=== PATIENT | male | born 1965 | race Caucasian/White ===

== ENCOUNTER 2018-02-08 16:25 | Emergency (ER) | payer BC ==
[~2018-02-08] VITALS: Ht 175.3 cm; Wt 83.0 kg
[2018-02-08 16:52] VITALS: BP 144/81
[2018-02-08] MEDS ORDERED: Morphine Sulfate 4mg/ml Inj (IV USE ONLY) IVP ONE (17:00)
[2018-02-08] MEDS ORDERED: Ketorolac 30mg Inj IV ONE (17:00)
[2018-02-08 17:22] LABS: BASOPHILS % (AUTO) 0.3 % (0.0-2.0); HEMATOCRIT 50.6 % (42.0-52.0); HEMOGLOBIN 17.9 G/DL (14.2-18.0); LYMPHOCYTES % (AUTO) 9.3 % (20.0-45.0); MEAN CORPUSCULAR VOLUME 92 FL (80-99); MONOCYTES % (AUTO) 9.2 % (1.0-10.0); NEUTROPHILS % (AUTO) 81.2 % (45.0-75.0); PLATELET COUNT 317 K/UL (150-450); RED BLOOD COUNT 5.51 M/UL (4.70-6.10); RED CELL DISTRIBUTION WIDTH 11.9 % (11.6-14.8); WHITE BLOOD COUNT 9.8 K/UL (4.8-10.8)
[2018-02-08 17:24] LABS: APPEARANCE,URINE CLEAR; BILIRUBIN, URINE NEGATIVE (NEGATIVE); GLUCOSE, URINE (UA) NEGATIVE (NEGATIVE); KETONES,URINE 2+ (NEGATIVE); LEUKOCYTE ESTERASE ,URINE 1+ (NEGATIVE); NITRITE,URINE NEGATIVE (NEGATIVE); PH,URINE 6.5 (4.5-8.0); PROTEIN,URINE 2+ (NEGATIVE); UROBILINOGEN,URINE NORMAL MG/DL (0.0-1.0)
[2018-02-08 17:25] LABS: COLOR,URINE YELLOW
[2018-02-08 17:33] LABS: INR 1.1 (0.9-1.1)
[2018-02-08 17:34] LABS: ANION GAP 7 mmol/L (5-15); BLOOD UREA NITROGEN 22 mg/dL (7-18); CALCIUM 9.4 MG/DL (8.5-10.1); CARBON DIOXIDE 30 MMOL/L (21-32); CHLORIDE 101 MMOL/L (98-107); CREATININE 1.1 MG/DL (0.55-1.30); POTASSIUM 5.1 MMOL/L (3.5-5.1); SODIUM 138 MMOL/L (136-145)
[2018-02-08 17:38] LABS: ALANINE AMINOTRANSFERASE 45 U/L (12-78); ALBUMIN 4.5 G/DL (3.4-5.0); ALBUMIN/GLOBULIN RATIO 1.2 (1.0-2.7); ALKALINE PHOSPHATASE 50 U/L (46-116); ASPARTATE AMINO TRANSFERASE 22 U/L (15-37); BILIRUBIN,TOTAL 0.7 MG/DL (0.2-1.0)
--- NOTE | 2018-02-08 19:09 | Emergency Room Report ---
History of Present Illness General Chief Complaint: Pain Source: Patient Present Illness HPI Patient presents with lower abd pain. Started this afternoon. Intermittent. When he has it, it is severe. He thinks he might have pulled a muscle while working out. When he has the pain it is 10/10, at rest - minimal. Somewhat worse with movement, but starts spontaneously. Never has had before. No medicines taken. 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 Recent URI with treatment with steroids and antibiotic injection. On taper for 3 days. URI symptoms = sore throat improved. Mom in car states he almost passed out due to pain while he was driving and had to extractor puller. He was pale at that time. No NVD, dysuria, joint pain, chest pain, dyspnea, rashes. No prior h/o renal stones. Uncle with h/o renal stones. Admission here 10 years ago for facial cellulitis. 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 Reviewed Nursing Documentation: PMH: Agreed; PSxH: Agreed Nursing Documentation-PMH Past Medical History: No Stated History Review of Systems All Other Systems: negative except mentioned in HPI Physical Exam Vital Signs Date Time Temp Pulse Resp B/P (MAP) Pulse Ox O2 Delivery O2 Flow Rate FiO2 02/08/18 16:32 97.9 85 20 144/81 98 97.9 Sp02 EP Interpretation: reviewed, normal General Appearance: alert, GCS 15, other - episodes of severe pain with grimmacing Head: normocephalic, atraumatic Eyes: bilateral eye normal inspection, bilateral eye PERRL ENT: normal pharynx, no angioedema, normal voice Neck: full range of motion, supple Respiratory: chest non-tender, lungs clear, normal breath sounds Cardiovascular #1: regular rate, rhythm Cardiovascular #2: 2+ radial (R) Gastrointestinal: soft, no mass, no guarding, no rebound, tenderness - RLQ, other - some abdominal wall pain Genitourinary: no CVA tenderness Musculoskeletal: back normal, gait/station normal, normal range of motion Neurologic: alert, oriented x3, grossly normal Psychiatric: mood/affect normal Skin: normal inspection, warm/dry Medical Decision Making Diagnostic Impression: Primary Impression: Right flank pain Additional Impressions: Muscle spasm Dehydration Recent URI ER Course Patient presents with R flank/R LQ intermittent severe pain. DDx: renal stone, UTI, muscle strain/spasm, diverticulitis. Exam and history against appendicitis. Evaluation wit labs and ultrasound. Treatment with IV hydration and analgesia. Repeat evaluations. Due to severity of pain, consideration of renal stone. Labs with normal WBC, CMP except for elevated BUN and min elevated glucose. UA with ketones. US with gall bladder sludge. No hydro or stones identified. During U/S, he states he had xyphoid pain but not RUQ pain. Repeat exam, min tend RLQ - more abdominal wall and worsened with movement. Discussed outpatient observation with patient and family. Patient stable for outpatient observation and treatment. Laboratory Tests Test 02/08/18 16:35 02/08/18 17:15 Urine Color Yellow Urine Appearance Clear Urine pH 6.5 (4.5-8.0) Urine Specific [place] 1.015 (1.005-1.035) Urine Protein 2+ (NEGATIVE) H Urine Glucose (UA) Negative (NEGATIVE) Urine Ketones 2+ (NEGATIVE) H Urine Occult Blood Negative (NEGATIVE) Urine Nitrite Negative (NEGATIVE) Urine Bilirubin Negative (NEGATIVE) Urine Urobilinogen Normal MG/DL (0.0-1.0) Urine Leukocyte Esterase 1+ (NEGATIVE) H Urine RBC 0-2 /HPF (0 - 0) H Urine WBC 0-2 /HPF (0 - 0) Urine Squamous Epithelial Cells Occasional /LPF Urine Bacteria None /HPF (NONE) White Blood Count 9.8 K/UL (4.8-10.8) Red Blood Count 5.51 M/UL (4.70-6.10) Hemoglobin 17.9 G/DL (14.2-18.0) Hematocrit 50.6 % (42.0-52.0) Mean Corpuscular Volume 92 FL (80-99) Mean Corpuscular Hemoglobin 32.5 PG (27.0-31.0) H Mean Corpuscular Hemoglobin Concent 35.4 G/DL (32.0-36.0) Red Cell Distribution Width 11.9 % (11.6-14.8) Platelet Count 317 K/UL (150-450) Mean Platelet Volume 6.5 FL (6.5-10.1) Neutrophils (%) (Auto) 81.2 % (45.0-75.0) H Lymphocytes (%) (Auto) 9.3 % (20.0-45.0) L Monocytes (%) (Auto) 9.2 % (1.0-10.0) Eosinophils (%) (Auto) 0.0 % (0.0-3.0) Basophils (%) (Auto) 0.3 % (0.0-2.0) Prothrombin Time 11.1 SEC (9.30-11.50) Prothrombin Time INR 1.1 (0.9-1.1) PTT 25 SEC (23-33) Sodium Level 138 MMOL/L (136-145) Potassium Level 5.1 MMOL/L (3.5-5.1) Chloride Level 101 MMOL/L (98-107) Carbon Dioxide Level 30 MMOL/L (21-32) Anion Gap 7 mmol/L (5-15) Blood Urea Nitrogen 22 mg/dL (7-18) H Creatinine 1.1 MG/DL (0.55-1.30) Estimate Glomerular Filtration Rate > 60 mL/min (>60) Glucose Level 144 MG/DL (74-106) H Calcium Level 9.4 MG/DL (8.5-10.1) Total Bilirubin 0.7 MG/DL (0.2-1.0) Aspartate Amino Transferase (AST) 22 U/L (15-37) Alanine Aminotransferase (ALT) 45 U/L (12-78) Alkaline Phosphatase 50 U/L (46-116) Total Protein 8.2 G/DL (6.4-8.2) Albumin 4.5 G/DL (3.4-5.0) Globulin 3.7 g/dL Albumin/Globulin Ratio 1.2 (1.0-2.7) Lipase 229 U/L (73-393) CT/MRI/US Diagnostic Results CT/MRI/US Diagnostic Results : Imaging Test Ordered: ultrasound Impression sludge, no hydronephrosis or stone Last Vital Signs Date Time Temp Pulse Resp B/P (MAP) Pulse Ox O2 Delivery O2 Flow Rate FiO2 02/08/18 19:26 98.9 86 20 120/76 98 98.9 Status: improved Disposition: HOME, SELF-CARE Condition: Improved Scripts Methocarbamol* (ROBAXIN*) 500 Mg Tablet 500 MG PO TID, #8 TAB 0 Refills Prov: Bassem France M.D. 02/08/18 Ibuprofen* (MOTRIN*) 600 Mg Tablet 600 MG ORAL Q6H PRN for For Pain, #20 TAB Prov: Bassem France M.D. 02/08/18 Hydrocodone Bit/Acetaminophen 5-325* (NORCO 5-325*) 1 Each Tablet 1 TAB ORAL Q6H PRN for For Pain, #10 TAB 0 Refills Prov: Bassem France M.D. 02/08/18 Referrals: NON PHYSICIAN (PCP) Bassem France M.D. Feb 08, 2018 19:09
[2018-02-08] MEDS ORDERED: NORCO 5-325 TA1 EACH ORAL (19:12)
[2018-02-08] MEDS ORDERED: IBUPROFEN600 MG ORAL (19:12)
[2018-02-08] MEDS ORDERED: ROBAXIN500 MG PO (19:12)
[2018-02-08 19:26] VITALS: BP 120/76
--- NOTE | 2018-02-09 09:57 | Diagnostic Imaging Report ---
Indication: Abdominal pain Technique: Ruiz-scale and duplex images of the upper abdomen were obtained Comparison: none Findings: Gallbladder questionably contains some sludge. No gallbladder wall thickening or pericholecystic fluid Sonographic Montes's sign is negative. Common bile duct measures 3 mm in diameter. No intrahepatic biliary ductal dilatation. Liver demonstrates normal echogenicity, no focal abnormality. Portal vein and hepatic veins are patent. Pancreas is unremarkable. Spleen is unremarkable. Left kidney measures 13.3 cm in length. Right kidney measures 14.6 cm length. Both kidneys demonstrate normal echogenicity. There is no hydronephrosis. No focal abnormality . Non-aneurysmal abdominal aorta . Impression: Equivocal gallbladder sludge. Negative for stones or dilated ducts Otherwise unremarkable exam
== END 2018-02-08 19:26 | disposition home or self-care (01) ==
LOC: EMR 17:45
DX: R10.31 Right lower quadrant pain (principal); M62.838 Other muscle spasm; E86.0 Dehydration; Z91.048 Other nonmedicinal substance allergy status; Z87.442 Personal history of urinary calculi
CPT/HCPCS: 36415; 76700; 80053; 81003; 83690; 85025; 85610; 85730; 96361; 96374; 96375; 99284; J1885; J2270; J2405; S0028